=== PATIENT | female | born 1985 | race Caucasian/White ===

== ENCOUNTER 2016-04-03 10:13 | Emergency (ER) | payer OTHER ==
[2016-04-03 10:22] VITALS: TEMP 98.1; BMI 21.2
[2016-04-03] MEDS ORDERED: ONDANSETRON 4 MG/2 ML VIAL IVPUSH ONE (12:00)
[2016-04-03] MEDS ORDERED: SODIUM CHLORIDE 1,000 ML IV STA (12:00)
--- NOTE | 2016-04-03 12:04 | PDOC ---
*Physical Exam - Vital Signs Last Vital Signs Temp Pulse Resp BP Pulse Ox 98.1 F 95 H 20 116/68 99 04/03/16 10:19 04/03/16 10:19 04/03/16 10:19 04/03/16 10:19 04/03/16 10:19 - Physical Exam Comments: 04/03/16 12:04 MIDLEVEL NOTE Pt seen by Midlevel Provider under my direct supervision. Pt interviewed and examined. Ancillary studies reviewed. I agree with plan as outlined by Midlevel Provider. 04/03/16 15:16 Laboratory Results - last 24 hr 04/03/16 04/03/16 04/03/16 12:20 12:30 12:30 WBC 8.9 D RBC 4.06 Hgb 12.6 D Hct 38.0 D MCV 93.6 MCHC 33.2 RDW 13.3 Plt Count 258 MPV 7.4 L D Neutrophils % 48.4 D Lymphocytes % 28.0 D Monocytes % 6.4 Eosinophils % 16.0 H D Basophils % 1.2 D Sodium 140 Potassium 4.3 Chloride 108 H Carbon Dioxide 25 D Anion Gap 7 L BUN 20 H D Creatinine 1.0 D Creat Clearance w eGFR > 60 Random Glucose 111 H D Calcium 9.3 Magnesium Total Bilirubin 0.1 L AST 19 ALT 17 Alkaline Phosphatase 69 Total Protein 7.2 Albumin 4.0 Lipase Urine Color Ltyellow Urine Appearance Clear Urine pH 6.0 Ur Specific Boyce 1.021 Urine Protein Negative Urine Glucose (UA) Negative Urine Ketones Negative Urine Blood 1+ H Urine Nitrite Negative Urine Bilirubin Negative Urine Urobilinogen Negative Ur Leukocyte Esterase Negative Urine RBC 4 Urine WBC <1 Ur Epithelial Cells Rare Urine Mucus Rare Urine HCG, Qual Negative 04/03/16 12:30 WBC RBC Hgb Hct MCV MCHC RDW Plt Count MPV Neutrophils % Lymphocytes % Monocytes % Eosinophils % Basophils % Sodium Potassium Chloride Carbon Dioxide Anion Gap BUN Creatinine Creat Clearance w eGFR Random Glucose Calcium Magnesium 2.4 Total Bilirubin AST ALT Alkaline Phosphatase Total Protein Albumin Lipase 318 Urine Color Urine Appearance Urine pH Ur Specific Boyce Urine Protein Urine Glucose (UA) Urine Ketones Urine Blood Urine Nitrite Urine Bilirubin Urine Urobilinogen Ur Leukocyte Esterase Urine RBC Urine WBC Ur Epithelial Cells Urine Mucus Urine HCG, Qual ED Treatment Course - LABORATORY CBC & Chemistry Diagram: 04/03/16 12:30 04/03/16 12:30 *DC/Admit/Observation/Transfer Diagnosis at time of Disposition: Abdominal pain, Nausea & vomiting, Diarrhea - Discharge Dispostion Disposition: HOME - Prescriptions Prescriptions: Ondansetron HCl [Zofran] 4 mg PO TID PRN #12 tablet PRN Reason: Nausea And/Or Vomiting - Referrals Referrals: Lexy Stoner MD [Nurse Practitioner] - - Patient Instructions Printed Discharge Instructions: DI for Diarrhea and Traveler's Diarrhea -- Adult, Nausea and Vomiting-Adult Additional Instructions: Please drink plenty of fluids and eat well-balanced meals throughout the day. Please take Zofran as needed for nausea. Please bring copy of her labs today with you to your PCP . Return to ED if your symptoms worsen despite above recommendations.
[2016-04-03 12:38] LABS: URINE APPEARANCE CLEAR; URINE BILIRUBIN NEGATIVE (NEGATIVE); URINE COLOR LTYELLOW; URINE GLUCOSE (UA) NEGATIVE (NEGATIVE); URINE KETONE NEGATIVE (NEGATIVE); URINE LEUK ESTERASE NEGATIVE (NEGATIVE); URINE NITRITE NEGATIVE (NEGATIVE); URINE PROTEIN NEGATIVE (NEGATIVE); URINE UROBILINOGEN NEGATIVE E.U./dl (0.2-1.0)
[2016-04-03 12:40] LABS: URINE BLOOD 1+ (NEGATIVE)
[2016-04-03 12:42] LABS: URINE MUCUS RARE; URINE RBC 4 /hpf (0-3); URINE WBC <1 /hpf (3-5)
[2016-04-03 12:45] LABS: BASOPHIL 1.2 % (0-2.0); MCH 31.1 pg (25.7-33.7); MCHC 33.2 g/dl (32.0-36.0); MEAN CELL VOLUME 93.6 fl (80-96); MEAN PLT VOLUME 7.4 fl (7.5-11.1); NEUTROPHILS 48.4 % (42.8-82.8); PLATELET COUNT 258 K/MM3 (134-434); RDW 13.3 % (11.6-15.6); WHITE BLOOD COUNT 8.9 K/mm3 (4.0-10.0)
[2016-04-03 13:05] LABS: MAGNESIUM 2.4 mg/dL (1.8-2.4)
[2016-04-03] MEDS ORDERED: KETOROLAC TROMETHAMINE 30 MG/1 ML VIAL IVPUSH ONE (13:19)
[2016-04-03] MEDS ORDERED: METOCLOPRAMIDE HCL INJECTION 10 MG/2 ML VIAL IVPB ONE (13:19)
[2016-04-03 13:23] LABS: ANION GAP 7 (8-16); BILIRUBIN,TOTAL 0.1 mg/dL (0.2-1.0); CALCIUM 9.3 mg/dL (8.5-10.1); CO2 25 mmol/L (21-32); GLUCOSE,RANDOM 111 mg/dL (74-106); SGOT/AST 19 U/L (15-37); SGPT/ALT 17 U/L (12-78); TOT PROT 7.2 g/dl (6.4-8.2)
[2016-04-03 13:24] LABS: ALK PHOS 69 U/L (45-117)
--- NOTE | 2016-04-03 13:25 | PDOC ---
History of Present Illness - General Chief Complaint: Pain Stated Complaint: ABD PAIN, HEADACHES Time Seen by Provider: 04/03/16 11:45 History Source: Patient Exam Limitations: No Limitations - History of Present Illness Initial Comments: 04/03/16 12:29 30-year-old female presents to the ED with complaints of nausea and vomiting for the past 2 days associated with a frontal headache since this morning. Patient also complaining of diarrhea for the past 3 days having approximately 10 episodes total. Patient states the past month spell has been having right flank and right abdominal pain and had an ultrasound done yesterday as ordered by her PCP. Ultrasound was reviewed by me which showed possible parenchymal renal disease. Patient has no complaints of urinary difficulty, hematuria, or bilateral flank pain. Patient denies history of kidney stones and states irregular menses secondary to Mirena IUD. Timing/Duration: changing over time Severity: mild, moderate Associated Symptoms: reports: headaches (since this am), nausea/vomiting (x 2 days) Past History - Past Medical History Allergies/Adverse Reactions: Allergies Allergy/AdvReac Type Severity Reaction Status Date / Time No Known Allergies Allergy Verified 04/03/16 10:19 Home Medications: Ambulatory Orders Albuterol Sulfate Inhaler - [Ventolin HFA Inhaler -] 1 - 2 inh IH QID PRN Diazepam [Valium] 5 mg PO Q8H #12 tablet MDD 3 12/14/15 Aspirin/Acetaminophen/Caffeine [Excedrin Migraine Caplet] 1 each PO BID PRN 04/18 Asthma: Yes Cancer: No Cardiac Disorders: No Diabetes: No HTN: No Seizures: No Thyroid Disease: No - Reproductive History Is Patient Now?: No Cervical CA: No Dysfunctional Uterine Bleeding: No Ectopic : No Endometrial CA: No Polycystic Ovaries: No - Immunization History Immunization Up to Date: Yes (NO FLU) - Psycho/Social/Smoking Cessation Hx Anxiety: No Suicidal Ideation: No Smoking Status: Yes Smoking History: Current every day smoker Have you smoked in the past 12 months: Yes Number of Cigarettes Smoked Daily: 3 If you are a former smoker, when did you quit?: 06/2011 Information on smoking cessation initiated: No Hx Alcohol Use: No Drug/Substance Use Hx: No Substance Use Type: None Hx Substance Use Treatment: No Patient Lives Alone: No Lives with/in: parents Review of Systems - Review of Systems Able to Perform ROS?: Yes Constitutional: No: Symptoms Reported, Chills, Fever, Weakness HEENTM: No: Symptoms Reported Respiratory: No: Symptoms reported Cardiac (ROS): No: Symptoms Reported ABD/GI: Yes: Diarrhea, Nausea, Vomiting, Abdominal cramping. No: Poor Appetite , Poor Fluid Intake : No: Symptoms Reported Musculoskeletal: No: Symptoms Reported Integumentary: No: Symptoms Reported Neurological: Yes: Headache (frontal) Endocrine: No: Symptoms Reported Hematologic/Lymphatic: No: Symptoms Reported *Physical Exam - Vital Signs Last Vital Signs Temp Pulse Resp BP Pulse Ox 98.1 F 95 H 20 116/68 99 04/03/16 10:19 04/03/16 10:19 04/03/16 10:19 04/03/16 10:19 04/03/16 10:19 - Physical Exam General Appearance: Yes: Nourished, Appropriately Dressed. No: Apparent Distress HEENT: positive: EOMI, PRINCE. negative: Pale Conjunctivae Neck: positive: Supple Respiratory/Chest: positive: Lungs Clear, Normal Breath Sounds. negative: Respiratory Distress, Accessory Muscle Use Cardiovascular: positive: Regular Rhythm, Regular Rate. negative: Murmur Gastrointestinal/Abdominal: positive: Normal Bowel Sounds, Soft, Tenderness (rt flank, right upper quadrant, negative Nguyễn's). negative: Distended, Guarding , Rebound Musculoskeletal: negative: CVA Tenderness, CVA Tenderness (R) Extremity: positive: Normal Capillary Refill. negative: Pedal Edema Integumentary: positive: Normal Color, Warm, Moist Neurologic: positive: Normal Mood/Affect, Motor Strength 5/5 ED Treatment Course - LABORATORY CBC & Chemistry Diagram: 04/03/16 12:30 04/03/16 12:30 - ADDITIONAL ORDERS Additional order review: Laboratory Results 04/03/16 04/03/16 12:30 12:20 Magnesium 2.4 Lipase 318 Urine Color Ltyellow Urine Appearance Clear Urine pH 6.0 Ur Specific Goodman 1.021 Urine Protein Negative Urine Glucose (UA) Negative Urine Ketones Negative Urine Blood 1+ H Urine Nitrite Negative Urine Bilirubin Negative Urine Urobilinogen Negative Ur Leukocyte Esterase Negative Urine RBC 4 Urine WBC <1 Ur Epithelial Cells Rare Urine Mucus Rare Urine HCG, Qual Negative 04/03/16 12:30 RBC 4.06 MCV 93.6 MCHC 33.2 RDW 13.3 MPV 7.4 L D Neutrophils % 48.4 D Lymphocytes % 28.0 D Monocytes % 6.4 Eosinophils % 16.0 H D Basophils % 1.2 D - Medications Given in the ED: ED Medications Discontinued Medications Generic Name Dose Route Start Last Admin Trade Name Josep PRN Reason Stop Dose Admin Sodium Chloride 1,000 mls @ 1,000 mls/hr 04/03/16 12:00 04/03/16 12:56 Normal Saline - IV 04/03/16 12:59 1,000 mls/hr ASDIR STA Administration Medical Decision Making - Medical Decision Making 04/03/16 12:29 Patient with one month of right abdominal pain now associated nausea vomiting diarrhea. Patient states has had no fever or chills, difficulty breathing, cough , neck pain, headache or dizziness. Patient states had an ultrasound done yesterday as ordered by her PCP which showed possible renal disease and recommended clinical correlation. Patient on exam did have tenderness to the right upper quadrant but negative for Nugyễn's. Patient also with tenderness to right flank with no CVA tenderness. Patient ordered for labs including CBC, comp , lipase, urinalysis urine , magnesium, and IV fluids. Based on status patient will be ordered for Reglan and Toradol. 04/03/16 14:32 Laboratory Tests 04/03/16 04/03/16 04/03/16 12:20 12:30 12:30 WBC 8.9 D Hgb 12.6 D Hct 38.0 D Neutrophils % 48.4 D Eosinophils % 16.0 H D Sodium 140 Potassium 4.3 Chloride 108 H Carbon Dioxide 25 D Anion Gap 7 L BUN 20 H D Random Glucose 111 H D Calcium 9.3 Magnesium Total Bilirubin 0.1 L AST 19 ALT 17 Lipase Urine Blood 1+ H Urine Nitrite Negative Ur Leukocyte Esterase Negative Urine WBC <1 Urine HCG, Qual Negative 04/03/16 12:30 WBC Hgb Hct Neutrophils % Eosinophils % Sodium Potassium Chloride Carbon Dioxide Anion Gap BUN Random Glucose Calcium Magnesium 2.4 Total Bilirubin AST ALT Lipase 318 Urine Blood Urine Nitrite Ur Leukocyte Esterase Urine WBC Urine HCG, Qual Pt states feeling better. Pt will be given an rx for zofran and told to follow up with her physician. Pt will be given copy of labs. *DC/Admit/Observation/Transfer Diagnosis at time of Disposition: Abdominal pain Qualifiers: Abdominal location: right upper quadrant Qualified Code(s): R10.11 - Right upper quadrant pain Nausea and vomiting Qualifiers: Vomiting type: bilious vomiting Qualified Code(s): R11.14 - Bilious vomiting Diarrhea Qualifiers: Diarrhea type: unspecified type Qualified Code(s): R19.7 - Diarrhea, unspecified - Discharge Dispostion Disposition: HOME - Referrals Referrals: Lexy Stoner MD [Nurse Practitioner] - - Patient Instructions Printed Discharge Instructions: Nausea and Vomiting-Adult, DI for Diarrhea and Traveler's Diarrhea -- Adult Additional Instructions: Please drink plenty of fluids and eat well-balanced meals throughout the day. Please take Zofran as needed for nausea. Please bring copy of her labs today with you to your PCP . Return to ED if your symptoms worsen despite above recommendations.
[2016-04-03] MEDS ORDERED: KETOROLAC TROMETHAMINE 30 MG/1 ML VIAL ONE (13:35)
[2016-04-03] MEDS ORDERED: METOCLOPRAMIDE HCL INJECTION 10 MG/2 ML VIAL ONE (13:35)
[2016-04-03 15:09] VITALS: BP 122/78; PULSE 77
== END 2016-04-03 15:10 | disposition home or self-care (01) ==
LOC: JER 10:13
PROC: 3E0337Z Introduction of Electrolytic and Water Balance Substance into Peripheral Vein, Percutaneous Approach (ICD-10-PCS; principal; 2016-04-03)
PROC: 3E0333Z Introduction of Anti-inflammatory into Peripheral Vein, Percutaneous Approach (ICD-10-PCS; 2016-04-03)
DX: R11.2 Nausea with vomiting, unspecified (principal); R11.14 Bilious vomiting
CPT/HCPCS: 36415; 80053; 81003; 81015; 83690; 83735; 84703; 85025; 87086; 99283-25